=== PATIENT | female | born 1985 | race Caucasian/White ===

== ENCOUNTER 2016-12-12 21:39 | Emergency (ER) | payer SELFPAY ==
[2016-12-12 21:47] VITALS: BP 138/72
== END 2016-12-12 22:58 | disposition home or self-care (01) ==
LOC: ED 21:39
DX: S91.332A Puncture wound without foreign body, left foot, initial encounter (principal); L03.116 Cellulitis of left lower limb; X58.XXXA Exposure to other specified factors, initial encounter; Y93.89 Activity, other specified; Y99.8 Other external cause status; Y92.89 Other specified places as the place of occurrence of the external cause
CPT/HCPCS: 90715; J0696

== ENCOUNTER 2018-12-10 18:06 | Emergency (ER) | payer OTHER ==
[~2018-12-10] VITALS: Ht 157.5 cm; Wt 92.5 kg
[2018-12-10 18:15] VITALS: Ht 157.5 cm; Wt 92.5 kg
[2018-12-10 19:35] VITALS: BP 129/70
== END 2018-12-10 19:35 | disposition home or self-care (01) ==
LOC: ED 18:06
DX: H60.92 Unspecified otitis externa, left ear (principal)

== ENCOUNTER 2019-01-23 07:47 | Inpatient (IN) | payer OTHER ==
[~2019-01-23] VITALS: Ht 157.5 cm; Wt 90.3 kg
[2019-01-23 07:54] VITALS: Ht 157.5 cm; Wt 90.3 kg
--- NOTE | 2019-01-23 07:56 | NUR ---
PT RETURNED TO LOBBY, NAD NOTED.
--- NOTE | 2019-01-23 08:01 | NUR ---
PT PLACED IN 2B FOR EVAL.
--- NOTE | 2019-01-23 08:05 | NUR ---
AMBULATORY TO T2B. PT C/O MID ABD PAIN RADIATING TO R FLANK AREA, DENIES N/V/D.
[2019-01-23 09:12] LABS: BASOPHIL % 0.6 % (0-2); PLATELET COUNT 304 x10^3mcL (130-400); RED CELL DISTRIBUTION WIDTH 12.9 % (11.5-14.5)
--- NOTE | 2019-01-23 09:14 | NUR ---
MEDICATED ORDERED. NS BOLUS INFUSINMG. KEPT NPO
[2019-01-23 09:19] LABS: ALBUMIN 3.6 g/dL (3.4-5.0); ALKALINE PHOSPHATASE 64 U/L (46-116); ALT/SGPT 25 U/L (14-59); AST/SGOT 9 U/L (15-37); BILIRUBIN TOTAL 0.28 mg/dL (0.20-1.00); CARBON DIOXIDE 26.8 mmol/L (21-32); CHLORIDE SERUM 105 mmol/L (98-107); CHOLESTEROL 193 mg/dL (<200); CREATININE SERUM 0.7 mg/dL (0.6-1.0); GFR1 > 60 mL/min; GLUCOSE SERUM 128 mg/dL (74-106); LIPASE 182 IU/L (73-393); POTASSIUM SERUM 4.6 mmol/L (3.5-5.1); SODIUM SERUM 141 mmol/L (136-145); TOTAL PROTEIN, SERUM 7.6 g/dL (6.4-8.2)
[2019-01-23 09:20] LABS: HDL CHOLESTEROL 32 mg/dL (40-60)
--- NOTE | 2019-01-23 09:23 | NUR ---
US AT BEDSIDE.
[2019-01-23 09:24] LABS: UA SPECIFIC GRAVITY >=1.030 (1.005-1.035); microscopic required? YES; urine erythrocyte 1+ (NEGATIVE)
--- NOTE | 2019-01-23 11:23 | NUR ---
AWAKE, LAYING IN BED, NO SIGNS OF DISTRESS, STATES NO ABD PAIN AT THIS TIME.
--- NOTE | 2019-01-23 12:23 | NUR ---
PT LAYING IN BED, IN NAD. RESP EVEN AND UNLABORED, ON RA@98%.
--- NOTE | 2019-01-23 13:06 | NUR ---
REPORT GIVEN TO RAFI SHORE, UP[DATED ON STATUS, LABS AND VITALS. PT STABLE FOR TRANSFER.
[2019-01-23 13:31] LABS: CHOLESTEROL/HDL RATIO 6.1; PHOSPHOROUS 3.3 mg/dL (2.5-4.9)
[2019-01-23 13:39] LABS: FREE T4 1.06 ng/dL (0.76-1.46); T4(THYROXINE) 9.2 ug/dL (4.7-13.3)
[2019-01-23 13:40] LABS: T3 TOTAL 1.45 ng/mL
[2019-01-23 13:59] LABS: AMPHETAMINE QUAL UR NONE DETECTED (See below)
--- NOTE | 2019-01-23 15:05 | NUR ---
[facility], ACCOMPANIED BY TRANSPORTER. PT A/A/O X 4, CALM, COOPERATIVE. AMBULATORY, NO GAIT OR BALANCE IMPAIRMENT NOTED WHEN WALKING FROM [facility] TO BED. DENIES CHEST PAIN OR DISCOMFORT AT THIS TIME. NO ACUTE RESPIRATORY DISTRESS NOTED. ABD SOFT, ROUND, TENDERNESS UPON PALPATION TO RUQ (4/10 INTERMITTENT CRAMPING, UNABLE TO LAY DOWN ON RIGHT SIDE, RELIEVED BY PAIN MEDICATIONS), NORMOACTIVE BOWEL SOUNDS AND TYMPANY UPON PERCUSSION X 4 QUADS, LAST BM 01/23/19, SOFT. STATES HAVING SENSATION OF INCOMPLETE VOIDING. IV SITE RAC 20G, CDI. ORIENTED PT TO ROOM, BED CONTROLS, CALL LIGHT SYSTEM. SIDE RAILS UP X 2, BED IN LOW POSITION. WILL ENDORSE TO MONE MCKEE.
--- NOTE | 2019-01-23 15:07 | NUR ---
DUE TO LACK OF retail stocker, PT WAS TRANSFERRED TO FLOOR ASORDERED. PT STABLE FOR TRANSFER.
[2019-01-23 15:20] VITALS: BP 111/62
[2019-01-23 17:31] VITALS: BP 108/60
--- NOTE | 2019-01-23 19:04 | NUR ---
REMAINS IN STABLE CONDITION AT THIS TIME. WILL CONTINUE TO MONITOR.
--- NOTE | 2019-01-23 19:52 | NUR ---
RECEIVED PATIENT IN BED AWAKE, ALERT AND ORIENTED WITH NO C/O ABDOMINAL PAIN AT THIS TIME. ABDOMEN ROUND, OBESE AND NONTENDER WITH ACTIVE BS. NPO FOR POSSIBLE SURGERY, INSTRUCTION GIVEN, PATIENT VERBALIZED UNDERSTANDING. IV TO RAC INTACT AND INFUSING WELL. WILL CONTINUE TO MONITOR. CALL LIGHT WITHIN REACH.
[2019-01-23 20:32] VITALS: BP 97/54
--- NOTE | 2019-01-24 01:08 | NUR ---
APPEARS SLEEPING THIS TIME BREATHING EASY AND NON LABOR. WILL CONTINUE TO MONITOR.
[2019-01-24 05:04] VITALS: BP 124/55
--- NOTE | 2019-01-24 05:05 | NUR ---
SLEPT AT LONG INTERVALS, DENIES PAIN AND DISCMFORT THE ENTIRE SHIFT. KEPT ON NPO.
[2019-01-24 06:19] LABS: PLATELET COUNT 252 x10^3mcL (130-400); RED CELL DISTRIBUTION WIDTH 13.3 % (11.5-14.5)
[2019-01-24 06:42] LABS: BASOPHIL % 2.2 % (0-2)
[2019-01-24 07:13] LABS: CALCIUM 7.8 mg/dL (8.5-10.1); CARBON DIOXIDE 22.8 mmol/L (21-32); CHLORIDE SERUM 108 mmol/L (98-107); CREATININE SERUM 0.6 mg/dL (0.6-1.0); GFR1 > 60 mL/min; GLUCOSE SERUM 94 mg/dL (74-106); MAGNESIUM 1.8 mg/dL (1.8-2.4); PHOSPHOROUS 2.7 mg/dL (2.5-4.9); POTASSIUM SERUM 3.6 mmol/L (3.5-5.1); SODIUM SERUM 142 mmol/L (136-145)
--- NOTE | 2019-01-24 07:30 | NUR ---
PT IS AAOX4. RESP EVEN AND UNLABORED. ON R/A. NO COUGH OR SOB NOTED. NORMAL S1S2 NOTED. ABDOMEN SOFT, ROUND, TENDER UPON PALPATION, NONDISTENDED. BOWEL SOUNDS ACTIVE X4 QUADS. PT DENIES N/V/D AT THIS TIME. SKIN CDI. NO EDEMA. PERIPERAL PULSES PALPABLE. IVF RUNNING TO RAC. SITE WNL. PT DENIES PAIN. PT REMAINS NPO SINCE MIDNIGHT. CALL LIGHT WITHIN REACH. BED IN LOWEST POSITION.
[2019-01-24 08:47] VITALS: BP 104/63
--- NOTE | 2019-01-24 09:30 | NUR ---
REPORTED TO DR. SOSA THAT PT NEEDS A CONSULT ORDERED AND THE INFORMED CONSENT TO BE CLARIFIED. DR. SOSA STATED SHE WILL FOLLOW UP ON THE REQUESTS.
[2019-01-24 12:15] LABS: microscopic required? YES; urine erythrocyte NEGATIVE (NEGATIVE)
--- NOTE | 2019-01-24 12:45 | NUR ---
IV FLUIDS REPLINISHED. PT N/S LOCKED AND TAKEN FOR HIDA SCAN AT THIS TIME.
--- NOTE | 2019-01-24 14:00 | NUR ---
PT BACK FROM HIDA SCAN. IVF STARTED. RESP EVEN AND UNLABORED. NO DISTRESS NOTED. DENIES PAIN. CALL LIGHT WITHIN REACH. BED IN LOWEST POSTION.
--- NOTE | 2019-01-24 14:49 | NUR ---
PATIENT N/S LOCKED AND TAKEN FOR LAB RENETTA. DR. MALIK SPOKE WITH PT INFORMING HER OF THE PROCEDURE.
--- NOTE | 2019-01-24 17:36 | NUR ---
PT IS BACK FROM LAB RENET[facility]. REPORT GIVEN BY MONE PARKS. PT HAS 4 SURGICAL INCISIONS CLOSED WITH SUTURES AND UBALDO, ON INCISION SITE WITH PAT DRAIN. SMALL INCISION SITE FOR NEEDLE COVERED WITH SMALL BANDAID. PAT DRAIN HAS 10ML SEROSANGUIOUS FLUID. VS: T 96.9, HR 87, RR 16, BP 158/85, PT DENIES PAIN AT THIS TIME. RESP EVEN AND UNLABORED. NO DISTRESS NOTED. CALL LIGHT WITHIN REACH. AT BEDSIDE.
[2019-01-24 17:37] VITALS: BP 158/85
--- NOTE | 2019-01-24 18:20 | NUR ---
MORPHINE 2MG IVP GIVEN FOR ACHING ABDOMINAL PAIN 01/25. RESP EVEN AND UNLABORED. NO RESP DISTRESS NOTED. IVF RUNNING TO RAC. SITE WNL. PAT DRAIN IN PLACE WITH 10ML SEROSANGUIANOUS FLUID. AT BEDSIDE. BED IN LOW POSITION. CALL LIGHT WITHIN REACH. WILL ENDORSE ALL CARE TO NOC RN.
[2019-01-24 18:39] VITALS: BP 140/77
[2019-01-24 19:27] VITALS: BP 144/82
--- NOTE | 2019-01-24 19:40 | NUR ---
RECEIVED REPORT FROM AM NURSE. PT S/P LAP RENETTA. AAOX4, FOLLOWS COMMANDS. ABLE TO MAKE NEEDS KNOWN. MED SURG. DENIES CP/PRESSURE AT THIS TIME. PALPABLE PULSES TO ALL EXTREMETIES. NO EDEMA NOTED. LUNG SOUNDS CTA ON RA. BREATHING EVEN AND UNLABORED. NO ACUTE DISTRESS NOTED. ABD SOFT AND DISTENDED, HYPOACTIVE BS X4 QUAD. DENIES N/V AT THIS TIME. LAST BM 01/23/19. DENIES PASSING GAS OR BURPING AT THIS TIME. VOIDS FREELY BRP. C/O SENSATION OF INCOMPLETE VOIDING. AMBULATORY. 4 SX INCISIONS TO ABD COVERED WITH BANDAIDS, BANDAIDS CDI. PAT DRAIN TO RIGHT SIDE OF ABD DRAINING SEROSANGUINEOUS FLUID. NS RUNNING TO RAC AT 100ML/HR. SITE FREE FROM REDNESS AND SWELLING. BED AT LOWEST SETTING. SIDE RAILS X2 UP. CALL LIGHT WITHING REACH. WILL CONTINUE TO MONIOTOR.
--- NOTE | 2019-01-24 21:40 | NUR ---
PT C/O 01/25 ABD PAIN AND NAUSEA. DENIES VOMITING. MEDICATED WITH PRN IV MORPHINE AND PRN ZOFRAN PER AUG. WILL CONTINUE TO MONITOR.
--- NOTE | 2019-01-25 | NUR ---
PT HAD AN EMPISODE OF CLEAR GREEN LIQUID EMESIS. DENIES FEELING NAUSEOUS. WILL CONTINUE TO MONITOR.
--- NOTE | 2019-01-25 02:06 | NUR ---
PT LAYING DOWN IN BED WITH EYES CLOSED. BREATHING EVEN AND UNLABORED ON RA. NO ACUTE DISTRESS NOTED. WILL CONTINUE TO MONITOR.
[2019-01-25 04:30] VITALS: BP 145/88
--- NOTE | 2019-01-25 04:41 | NUR ---
PT C/O 11/25 ABD PAIN. MEDICATED WITH PRN NORCO PER AUG. WILL CONTINUE TO MONITOR.
--- NOTE | 2019-01-25 05:39 | NUR ---
PT SLEPT WELL THROGHOUT THE NIGHT. BREATHING EVEN AND UNLABORED ON RA. NO ACUTE DISTRESS NOTED. NS RUNNING TO LAC AT 100ML/HR. SITE FREE FROM RENDESS AND SWELLING. PAT EMPTIED WITH 20ML OF SEROSANGUINEOUS FLUID. BANDAIDS TO ABD CDI. DENIES PASSING GAS OR BURPING. BS HYPOACTIVE TO ALL QUADRANTS. DENIES N/V. ALL NEEDS ASSESSED AND ATTENDED TO. BED AT LOWEST SETTING. SIDE RAILS X2 UP. CALL LIGHT WITHING REACH. WILL ENDORSE CARE TO AM NURSE.
[2019-01-25 06:43] LABS: BASOPHIL % 0.1 % (0-2); PLATELET COUNT 273 x10^3mcL (130-400); RED CELL DISTRIBUTION WIDTH 12.6 % (11.5-14.5)
[2019-01-25 07:04] LABS: CALCIUM 8.2 mg/dL (8.5-10.1); CARBON DIOXIDE 23.9 mmol/L (21-32); CHLORIDE SERUM 102 mmol/L (98-107); CREATININE SERUM 0.6 mg/dL (0.6-1.0); GFR1 > 60 mL/min; GLUCOSE SERUM 134 mg/dL (74-106); MAGNESIUM 2.1 mg/dL (1.8-2.4); POTASSIUM SERUM 4.1 mmol/L (3.5-5.1); SODIUM SERUM 138 mmol/L (136-145)
--- NOTE | 2019-01-25 07:37 | NUR ---
PT C/O 01/25 ABD PAIN. MEDICATED WITH PRN NORCO PER AUG. ENDORSED CARE TO AM NURSE.
--- NOTE | 2019-01-25 07:50 | NUR ---
A+OX4, COMPLAINING OF NAUSEA, ZOFRAN GIVEN, MEDSURG, PULSES MODERATE AND EQUAL SHER, NO EDEMA NOTED, LUNG SOUNDS CTA, TOLERATING RA, BOWEL SOUNDS HYPOACTIVE, VOIDING FREELY, GENERALIZED WEAKNESS, X4 ABD INCISIONS WITH UBALDO AND COVERED BY BANDAIDS CDI, PAT DRAIN TO R ABD CDI, IV IN RAC WITH NS @ 100 ML/HR, SITE WNL.
--- NOTE | 2019-01-25 09:19 | NUR ---
PT RESTING IN BED, NO RESPIRATORY DISTRESS NOTED, COMPLAINING OF 5/10 ABD PAIN, TYLENOL PO GIVEN. PT STATES SHE CANNOT EAT REGULAR FOOD AND REQUESTING LIQUID DIET, CALL LIGHT WITHIN REACH.
[2019-01-25 09:27] VITALS: BP 125/73
--- NOTE | 2019-01-25 09:47 | NUR ---
ZULMA SPORTS ATTORNEY NOTIFIED PT HAVING NAUSEA AND UNABLE TO TOLERATE REGULAR DIET, SPORTS ATTORNEY ZULMA TELEPHONE ORDERED FULL LQUID DIET.
--- NOTE | 2019-01-25 11:51 | NUR ---
JOAN MAYA NOTIFIED OF WBC 14.6.
--- NOTE | 2019-01-25 12:02 | NUR ---
PT COMPLAINING OF NAUSEA, ZOFRAN IVP GIVEN, NO RESPRIATORY DISTRESS NOTED, CALL LIGHT WITHIN REACH.
--- NOTE | 2019-01-25 13:21 | NUR ---
PT RESTING IN BED, NO RESPRIATORY DISTRESS NOTED, DENIES PAIN, STATES NAUSEA WENT AWAY WITH ZOFRAN, FAMILY AT BEDSIDE, CALL LIGHT WITHIN REACH.
--- NOTE | 2019-01-25 13:48 | NUR ---
PT TOLERATING FULL LIQUID DIET.
--- NOTE | 2019-01-25 16:14 | NUR ---
PT RESTING IN BED, NO RESPIRATORY DISTRESS NOTED, COMPLAINING OF 5/10 ABD PAIN AND REQUESTING TYLENOL PO, TYLENOL PO GIVEN, AT BEDSIDE, CALL LIGHT WITHIN REACH.
--- NOTE | 2019-01-25 17:44 | NUR ---
PT RESTING IN BED, NO RESPIRATORY DISTRESS NOTED, DENIES PAIN, DENIES NAUSEA, 10 ML SEROSANGUINOUS FLUID, X1 BAND AID BLOODY AND REPLACED WITH NEW BAND AID TO ABD. ASSISTED PT TO WASH UP, USE SHAMPOO CAP AND CHANGE GOWN, AT BEDSIDE, CALL LIGHT WITHIN REACH.
[2019-01-25 17:54] VITALS: BP 117/66
--- NOTE | 2019-01-25 17:55 | NUR ---
PT STATES SHE IS HAVING GAS AND BURPING BUT NO BM POST LAP RENETTA. PT ENCOURAGED TO AMBULATE AROUND THE ROOM.
--- NOTE | 2019-01-25 18:29 | NUR ---
PT RESTING IN BED, TOLERATING FULL LIQUID DIET, DENIES NAUSEA, STATES ABD PAIN TOLERABLE AT THIS TIME, CALL LIGHT WITHIN REACH.
--- NOTE | 2019-01-25 19:15 | NUR ---
PT RECEIVED A/O X4, ABLE TO MAKE NEEDS KNOWN. FAMILY AT BEDSIDE. MED-SURG, DENIES CP/PRESSURE. PULSES PALPABLE, NO EDEMA PRESENT. BREATHING IS EVEN AND UNLABORED ON RA, DENIES SOB, NO RESP DISTRESS NOTED. ABD SOFT AND NONDISTENDED, BOWEL TONES ACTIVE X4 QUAD, DENIES N/V. PT IS S/P LAP RENETTA ON 01/24/19. PT ADMITS TO PASSING GAS, BURPING, AND VOIDING POST-OP, BUT DENIES HAVING A BM. ABD INCISIONS X4 WITH UBALDO AND BANDAIDS IN PLACE, CDI; PAT DRAIN IN PLACED TO RT-SIDE OF ABD, CLAMPED TO SUCTION, MINIMAL SEROSANGUINEOUS OUTPUT NOTED. VOIDS FREELY, BRP. AMBULATORY WITH STEADY GAIT. PT DENIES HAVING ANY PAIN AT THIS TIME. IVF INFUSING WELL TO RAC, SITE WNL. BED IN LOWEST SETTING, SIDE RAIL UP X2, CALL LIGHT WITHIN REACH. WILL CONT TO MONITOR.
--- NOTE | 2019-01-25 19:27 | NUR ---
ENDORSED CARE TO ROSETTA SHORE.
[2019-01-25 20:33] VITALS: BP 113/64
--- NOTE | 2019-01-25 21:56 | NUR ---
PT C/O 08/25 ABD PAIN, PRN TYLENOL GIVEN ORDERED. NO ACUTE DISTRESS NOTED. WILL CONT TO MONITOR.
[2019-01-26 05:26] VITALS: BP 124/70
--- NOTE | 2019-01-26 05:43 | NUR ---
PT SLEPT WELL THROUGHOUT THE EVENING. BREATHING IS EVEN AND UNLABORED, NO RESP DISTRESS NOTED. PT C/O 10/25 ABD PAIN, PRN TYLENOL GIVEN ORDERED PER PT'S REQUEST. ABD DRSG IN PLACE, CDI; PAT DRAIN OUTPUT-20 ML, SEROSANGUINEOUS AND CLAMPED TO SUCTION. PT REPORTS NO BM DURING SHIFT, BUT STATES, "EVERY TIME I PASS GAS, I FEEL LIKE I NEED TO GO, BUT HAVEN'T GONE YET." NO ACUTE CHANGES ENCOUNTERED DURING SHIFT. ALL NEEDS MET AND ANTICIPATED. IVF INFUSING WELL TO RAC, SITE WNL. CALL LIGHT WITHIN REACH. WILL ENDORSE CARE TO AM NURSE.
[2019-01-26 06:33] LABS: CALCIUM 7.9 mg/dL (8.5-10.1); CARBON DIOXIDE 23.1 mmol/L (21-32); CHLORIDE SERUM 107 mmol/L (98-107); CREATININE SERUM 0.5 mg/dL (0.6-1.0); GFR1 > 60 mL/min; GLUCOSE SERUM 99 mg/dL (74-106); POTASSIUM SERUM 3.6 mmol/L (3.5-5.1); SODIUM SERUM 142 mmol/L (136-145)
[2019-01-26 07:02] LABS: BASOPHIL % 0.3 % (0-2); PLATELET COUNT 248 x10^3mcL (130-400); RED CELL DISTRIBUTION WIDTH 13.5 % (11.5-14.5)
--- NOTE | 2019-01-26 07:20 | NUR ---
RECEIVED PT FROM SECURITY TECHNICIAN RN. Cele/ALEXANDRA. MED SURG. DENIES CHEST PAIN/PRESSURE. RESPIRATIONS EQUAL AND UNLABORED ON RA. DENIES ANY SOB. PT DENIES ANY ABDOMINAL PAIN AT THIS TIME. ABDOMINAL INCISIONX4 WITH UBALDO COVERED WITH BANDAIDS, CDI. PAT DRAIN DRAINING SEROSANGINEOUS DRAINAGE. PT STATES SHE HAS NOT HAD A BM YET. IV TO RAC PATENT AND INFUSING. NO REDNESS OR SWELLING NOTED. WILL CONTINUE TO MONITOR. CALL LIGHT IN REACH. BED IN LOWEST POSITION.
--- NOTE | 2019-01-26 07:26 | NUR ---
PT IN NO ACUTE DISTRESS. CONTINUITY OF CARE ENDORSED TO CHRIS SHORE. ALL QUESTIONS AND CONCERNS ADDRESSED.
[2019-01-26 08:01] VITALS: BP 113/64
--- NOTE | 2019-01-26 08:25 | NUR ---
ZULMA NURSE'S ASSISTANT AT BEDSIDE. PER ZULMA NURSE'S ASSISTANT WILL ADVANCE DIET TO REGULAR IF PT IS TOLERATING WELL. PT IS OKAY TO BE D/C HOME TODAY.
[2019-01-26] MEDS ORDERED: NORCO1 TA2 PO (09:11)
--- NOTE | 2019-01-26 09:22 | NUR ---
PT IN BED RESTING. NO ACUTE RESP DISTRESS NOTED ON RA. PT DENIES ANY PAIN AT THIS TIME. PT TOLERATED BREAKFAST WELL. DENIES ANY N/V. GIVEN PO MEDS. TOLERATED WELL. PT STATES "I HAVEN'T HAD A BOWEL MOVEMENT, BUT I HAVEN'T FELT THE NEED TO YET. I HAVE BEEN PASSING GAS" WILL CONTINUE TO MONITOR. CALL LIGHT IN REACH. BED IN LOWEST POSITION.
--- NOTE | 2019-01-26 12:08 | NUR ---
PT SITTING UP IN BED. NO ACUTE RESP DISTRESS NOTED ON RA. PT DENIES ANY PAIN AT THIS TIME. PT DENIES ANY N/V. WILL CONTINUE TO MONITOR. CALL LIGHT IN REACH. BED IN LOWEST POSITION.
[2019-01-26 12:58] VITALS: BP 113/64
--- NOTE | 2019-01-26 15:20 | NUR ---
PT SITTING UP IN BED. PT PREMEDICATED WITH NORCO. PAT DRAIN REMOVED NOTED 5 ML OF SEROSANGINEOUS DRAINAGE. PT TOLERATED WELL. PHOTO TAKEN. PT ENCOURAGED TO CONTINUE ACTIVITY TOLERATED AND NOT TO OVER EXERT HERSELF. PT ENCOURAGED TO FOLLOW UP WITH DR. MALIK WITHIN ONE WEEK. PT GIVEN DR. DUMONT PHONE NUMBER TO FOLLOW UP. PT ENCOURAGED TO CONTINUE REGULAR DIET TOLERATED. PT VERBALIZED UNDERSTANDING. PT GIVEN PRESCRIPTION FOR NORCO PT INSTRUCTED TO TAKE MEDICATION EVERY 4 TO 6 HOURS NEEDED FOR PAIN. PT INFORMED LAST DOSE OF NORCO WAS GIVEN AT 2:00PM. IV TO RAC REMOVED CATHETER INTACT. NO REDNESS OR SWELLING NOTED. ALL QUESTIONS AND CONCERNS ADDRESSED. NO PROBLEMS ENCOUNTERED. PT TAKEN OFF FLOOR VIA WHEELCHAIR BY MAGY.
== END 2019-01-26 15:35 | disposition home or self-care (01) | DRG 263 ==
LOC: ED 07:47 → MU 12:28
PROVIDERS: Emergency Medicine; Surgery; ADMIT Internal Medicine
PROC: 0FT44ZZ Resection of Gallbladder, Percutaneous Endoscopic Approach (ICD-10-PCS; principal; 2019-01-24 14:30)
DX: K80.12 Calculus of gallbladder with acute and chronic cholecystitis without obstruction (principal); N17.0 Acute kidney failure with tubular necrosis; E66.9 Obesity, unspecified; E78.5 Hyperlipidemia, unspecified; R73.9 Hyperglycemia, unspecified; Z68.36 Body mass index [BMI] 36.0-36.9, adult
CPT/HCPCS: 78226; 84439; A9537; G0378; J0330; J0694; J1885; J2175; J2250; J2270; J2405; J2704; J3010; J3490; J7030; J7120; Q0092